=== PATIENT | female | born 1990 | race Caucasian/White ===

== ENCOUNTER 2024-03-14 13:33 | Emergency (ER) | payer OTHER, SELFPAY ==
[2024-03-14 13:38] VITALS: BP 111/72
--- NOTE | 2024-03-14 14:06 | EDRN ---
Triage note: pt requested fluids for concern about dehydration. Was swabbed for flu and covid in triage area. No treatment rooms available. Pt tearful. Informed of delays. She reports concern that she might fall due to lightheadedness. Tech Rebecca
assisted pt to wheelchair back to [facility].
[2024-03-14 14:18] LABS: COVID-19 Antigen Negative (Negative)
[2024-03-14] MEDS: NSS 1000 IV (15:10)
[2024-03-14 15:23] LABS: Hematocrit 33.6 % (37.0-47.0); Hemoglobin 11.8 g/dL (12.0-16.0); Mean Corp Hgb Conc. 35.1 g/dL (33.0-37.0); Mean Corpuscular Volume 82.6 fL (81.0-99.0); Mean Platelet Volume 9.5 fL (7.4-10.4); Platelet Count 215 10^3/uL (130-400); Red Blood Cell Count 4.07 10^6/uL (4.20-5.40); Red Cell Dist. Width 12.8 % (11.5-14.5); White Blood Cell Count 9.2 10^3/uL (4.8-10.8)
[2024-03-14 15:39] LABS: Blood Urea Nitrogen 5 mg/dl (7-17); Calcium 8.1 mg/dl (8.4-10.2); Carbon Dioxide 26 mmol/L (22-30); Chloride 93 mmol/L (98-107); Glucose 112 mg/dl (70-99); Potassium 3.8 mmol/L (3.5-5.1); Sodium 129 mmol/L (135-145); eGFR > 60.00
--- NOTE | 2024-03-14 15:53 | ED.GENMED ---
History of Present Illness
General
Chief Complaint: Cold/Flu/URI Symptoms
Time Seen by Provider: 03/14/24 14:31
History of Present Illness
History of Present Illness:
33-year-old female presents to the emergency department for evaluation of cough and fever associated with elevated heart rate. She is 9 weeks . Concerned that her pulse oximetry was reading low at home. Did receive a flu shot this year.
Review of Systems
Review of Systems
Allergies reviewed?: Yes
All Other Systems: ROS reviewed and negative except as documented in HPI and ROS
Phy Exam
Physical Exam
Physical Exam:
GEN: Well appearing, NAD, WDWN
HEENT: Oral mucosa moist, no scleral icterus
Cardiac: Mildly tachycardic, regular
Lung: No respiratory distress, no tachypnea, lungs clear to auscultation bilaterally
MSK: No gross deformity or injuries
Skin: Good color, no pallor or jaundice, no rashes
Neuro: AO x3, moves all extremities freely
Psych: Calm, cooperative
Course
Orders/Labs/Results
Orders:
Orders
03/14/24 13:48
COVID-19 Antigen Urgent
Source: Nasal Swab
03/14/24 13:49
Influenza A+B Rapid Molecular Urgent
MARIA ISABEL Source: Nasal Swab
Specimen Description:
03/14/24 14:45
0.9% Sodium Chloride 1000 ml [Nss] 1,000 ml IV BOLUS
03/14/24 15:09
Basic Metabolic Panel Urgent
Complete Blood Count/No Diff Urgent
Abnormal Lab Results
03/14/24
15:09
RBC 4.07 L 10^6/uL
(4.20-5.40)
Hgb 11.8 L g/dL
(12.0-16.0)
Hct 33.6 L %
(37.0-47.0)
Sodium 129 L mmol/L
(135-145)
Chloride 93 L mmol/L
(98-107)
BUN 5 L mg/dl
(7-17)
Creatinine 0.5 L mg/dL
(0.6-1.0)
Glucose 112 H mg/dl
(70-99)
Calcium 8.1 L mg/dl
(8.4-10.2)
03/14/24 15:09
03/14/24 15:09
Vital Signs
Initial and Last Documented VS:
Initial Vital Signs
Temp Pulse Resp BP Pulse Ox
99.1 F 122 16 111/72 100
03/14/24 13:38 03/14/24 13:38 03/14/24 13:38 03/14/24 13:38 03/14/24 13:38
Last Documented Vital Signs
Temp Pulse Resp BP Pulse Ox
99.1 F 122 16 111/72 100
03/14/24 13:38 03/14/24 13:38 03/14/24 13:38 03/14/24 13:38 03/14/24 13:38
MDM/Problems Addressed
MDM/Problems Addressed:
Patient has no signs or symptoms of threatened miscarriage at this time. She is clinically well-appearing, mildly hyponatremic is likely hypovolemic due to increased respiratory rate and fever secondary to influenza. She is outside the treatment
range for antivirals however she is quite concerned about potential complications of the flu. I did provide her a prescription for Tamiflu however have recommended she contact her OB tomorrow to discuss whether there is any significant
benefit to this.
*Critical Care Note
Total Time (30-74mins, 75-104mins- exclusive of procedures): Not Applicable
ED Attending Note
-
Portions of this chart may have been created with voice recognition software.� Occasional wrong word or��sound alike� substitutions may have occurred due to the inherent limitations of voice recognition software.
Discharge Plan
Departure
Patient Disposition: Home (Routine Discharge)
Date of Disposition: 03/14/24
Time of Disposition: 15:53
Patient with high blood pressure during this ER visit?: No
Discharge Problem:
Influenza A
Instructions: Flu in adults - Discharge instructions
Prescriptions:
New
oseltamivir [Tamiflu] 75 mg capsule
75 mg PO BID Qty: 10 0RF
Referrals:
Nimisha Rhodes DO [Family Provider] -
Activity Restrictions/Additional Instructions:
Please discuss Tamiflu with your OBGYN, as it is unlikely to be effective when administered outside the 48 hour time frame
Interventions
Interventions:
ED- Fall Risk Assessment Last Done: 03/14/24 15:11
ED- Pulmonary Assessment Last Done: 03/14/24 15:11
Discharge Date and Time
Print Language: ARABIC
== END 2024-03-14 16:31 | disposition home or self-care (01) ==
LOC: EMR 13:33
PROVIDERS: Emergency Medicine; Physician Assistant; EMERGENCY PHYSICIAN Emergency Medicine; FAMILY PHYSICIAN Family Medicine
DX: O99.511 Diseases of the respiratory system complicating pregnancy, first trimester (principal); J10.1 Influenza due to other identified influenza virus with other respiratory manifestations; Z3A.09 9 weeks gestation of pregnancy
CPT/HCPCS: 96360; 99284; 80048; 85027; 87502; 87811